=== PATIENT | female | born 1960 | race Caucasian/White ===

== ENCOUNTER 2016-12-28 16:48 | Emergency (ER) | payer SELFPAY ==
[2016-12-28] MEDS ORDERED: KETOROLAC TROMETHAMINE 60 MG/2 ML VIAL IM ONE ×2 (17:45→17:48)
[2016-12-28] MEDS ORDERED: DICYCLOMINE HCL 10 MG/ML AMPUL IM ONE ×2 (17:45→17:48)
--- NOTE | 2016-12-28 19:09 | ERNOTE ---
Abdominal HPI - Narrative Date of Service: 12/28/16 - General Chief Complaint: Abdominal Pain Time Seen by Provider: 12/28/16 18:30 Source: patient Exam Limitations: no limitations - Immun/Allergies/Home Medications Immunizatons: IMMUNIZATION HX Immunizations Up to Date Yes History of Influenza Vaccine No Hx Pneumococcal Vaccination No Allergies/Adverse Reactions: Allergies No Known Allergies Allergy (Unverified 12/28/16 17:35) Home Medications: HOME MEDICATIONS Dicyclomine HCl [Bentyl] 20 mg PO QID #30 tablet 12/28/16 [Last Taken Unknown] Liraglutide [Victoza 2-Juan] 1.8 mg SQ DAILY 12/28/16 [Last Taken Unknown] Lisinopril/Hydrochlorothiazide [Lisinopril-Hctz 20-12.5 mg Tab] 1 each PO DAILY 12/28/16 [Last Taken Unknown] Loratadine [Claritin] 10 mg PO DAILY 12/28/16 [Last Taken Unknown] Simvastatin [Zocor] 20 mg PO HS 12/28/16 [Last Taken Unknown] Sulindac 200 mg PO BID #20 tab 12/28/16 [Last Taken Unknown] Triamcinolone Acetonide [Kenalog 0.1%] 1 applic TP BID PRN 12/28/16 [Last Taken Unknown] Tuejeo 35 - 40 unit SQ DAILY 12/28/16 [Last Taken Unknown] amLODIPine BESYLATE [Norvasc] 10 mg PO DAILY 12/28/16 [Last Taken Unknown] - History of Present Illness Narrative: In May or June of last year, she began to have unusual vaginal bleeding as well as pelvic and low back pain. Lack of insurance inhibited her from seeing an [employer] doctor. In the last 1-2 weeks, the bleeding has persisted , but the pain has increased. Yesterday, she was evaluated in the [facility] ER, and was told she had an ovarian cyst. Last week, she was seen in her primary care doctor's office, and was given tramadol, 50 mg, 1 pill four times daily as needed. Sometimes it helps, and sometimes it doesn't. Yesterday in the [place] ER she was given toradol IM and Bentyl IM which helped considerably. This morning it wore off, and she was again in pain. This is the reason she came to the [facility] ER today. We've also given her Toradol and Bentyl, and it is beginning to help. She still has not seen an tow mate because of finances, but hopes to within the next week or two. Timing: constant, getting worse Quality: moderate, severe, aching, cramping Activities at Onset: none Modifying Factors - (Improves): Present: analgesics Modifying Factors - (Worsens): Present: other - nothing known Associated Symptoms: Present: other - vaginal bleeding Review of Systems - Review of Systems Constitutional: Present: no symptoms reported EYE: Present: no symptoms reported ENT: Present: no symptoms reported Respiratory: Present: no symptoms reported Cardiology: Present: no symptoms reported Gastrointestinal/Abdominal: Present: no symptoms reported Genitourinary: Present: See HPI Musculoskeletal: Present: back pain Skin: Present: no symptoms reported Neurological: Present: no symptoms reported Endocrine: Present: no symptoms reported Hematologic/Lymphatic: Present: no symptoms reported Psych: Present: no symptoms reported All Other Systems: All systems neg except as marked - Patient's Past Medical History Patient History - Medical: No pertinent hx Patient History - Cardiac/Respiratory: No pertinent hx Patient History - Cancer: No Hx of Cancer Patient History - Surgical Procedures: No surgical history - Social History Smoking Status: Never smoker Have you smoked in the past 12 months: No Do you dip or chew tobacco: No - Immunizations Immunizations Up to Date: Yes Hx Pneumococcal Vaccination: No History of Influenza Vaccine: No Physical Exam - Physical Exam General Appearance: Present: wd/wn, alert, no apparent distress Eye Exam: Normal inspection: bilateral, PERRL: bilateral, EOMI: bilateral Ears, Nose, Throat: Present: normal ENT inspection Neck: Present: normal inspection, nontender Respiratory: Present: no respiratory distress, normal breath sounds Cardiovascular/Chest: Present: regular rate, rhythm, no murmur Gastrointestinal/Abdominal: Present: normal bowel sounds, nondistended, soft, no organomegaly, tenderness - pelvis, mild Back Exam: Present: vertebral tenderness - mild, mid lumbosacral spine Extremity Exam: Present: normal inspection, no edema Neurological Exam: Present: alert, oriented, normal mood/affect Skin Exam: Present: normal color, warm/dry ED Progress - Vital Signs Patient's Vital Signs:: I have reviewed the patient's vital signs. Vital Signs: Vital Signs 12/28/16 17:22 Temperature 35.2 C L Pulse Rate 120 H Respiratory 18 Rate Blood Pressure 161/82 O2 Sat by Pulse 96 Oximetry - Progress/Reassessment Chief Complaint: Abdominal Pain Progress Note-Subjective: 12/28/16 19:09 I have requested the [facility] ER records, which I will review. 12/28/16 19:26 I've reviewed the [facility] records: UA- 3-4 wbc's, 20-29 rbc's, 1+ bacteria. 0-1 epi's. sent for culture. 7.6 X 7 cm right adnexal cyst. by CT abdomen pelvis without contrast. Glucose was 280. globulin was 4.1 wbc was 13.9, hgb was 12.6, 80 % segs, 4% bands. Departure - Departure Clinical Impression: Abnormal vaginal bleeding Ovarian cyst Qualifiers: Laterality: right Qualified Code(s): N83.201 - Unspecified ovarian cyst, right side Condition: Good Instructions: Ovarian Cyst, [id number], Abnormal Uterine Bleeding Additional Instructions: [facility] Record from yesterday reported a right ovarian cyst, 7.6 X 7 cm., which is quite large. Do not delay pursuing your plan to see a hand tube winder very soon. Referrals: Shannon Yanez ARNP [Primary Care Provider] - Prescriptions: Dicyclomine HCl [Bentyl] 20 mg PO QID #30 tablet RX: Sulindac 200 mg PO BID #20 tab
--- OUTSIDE RECORDS SUMMARY | 2016-12-28 19:12 | XMS REPORT | Continuity of Care Document ---
:1960 Author Organization [employer] Address Unavailable [place] [address] Care Team Providers Name Role Phone Shannon Yanez Primary Care Provider [phone] Source Comments This disclosure is being made pursuant to the [employer] program and maynot contain all information available regarding this patient.[employer] Active Allergies and Adverse Reactions No Known Allergies Current Medications Be aware that medications may not be up to date as of this document. Alwaysverify current medications with the patient. Prescription Sig. Disp. Refills Start Date End Date Status amLODIPine (NORVASC) 5 5 mg daily. 0 10/28/2014 Active MG tablet lisinopril-hydrochloro Take 1 tablet by Active thiazide mouth 2 (two) (PRINZIDE,ZESTORETIC) times daily. 20-12.5 MG per tablet fluticasone (FLONASE) 1 spray by Nasal Active 50 MCG/ACT nasal spray route. prn Multiple Take 1 tablet by Active Vitamins-Minerals mouth daily. (MULTIVITAMIN PO) Insulin Syringe-Needle Use as directed 100 each 11/09/2014 Active U-100 (INSULIN SYRINGE tid 1CC/31GX5/16") 31G X 5/16" 1 ML MISC insulin NPH (HUMULIN Inject 20 units 20 mL 11/10/2014 Active N,NOVOLIN N) 100 sq qam and qhs UNIT/ML injection - relion brand vial insulin regular Inject 10 units 10 mL 11/10/2014 Active (HUMULIN R,NOVOLIN R) sq before 100 UNIT/ML injection breakfast and before supper daily relion brand Albiglutide (TANZEUM) Inject 30 mg into 4 each 12/22/2014 Active 30 MG PEN the skin once a week. metFORMIN TAKE FOUR TABLETS 360 tablet 5 03/02/2015 Active (GLUCOPHAGE-XR) 500 MG BY MOUTH DAILY 24 hr tablet WITH SUPPER B Complex Vitamins Take by mouth. Active (VITAMIN B COMPLEX PO) pravastatin Take 1 tablet by 90 tablet 1 04/15/2015 Active (PRAVACHOL) 40 MG mouth daily. tablet amitriptyline (ELAVIL) TAKE ONE-HALF 45 tablet 1 07/03/2015 Active 10 MG tablet TABLET BY MOUTH AT BEDTIME Active Problems Problem Noted Date Diabetes mellitus, type 2 (HCC) 04/12/2015 Hypertension 12/26/2014 Obesity 12/26/2014 Hyperlipidemia 12/26/2014 Type II or unspecified type diabetes mellitus without mention of 11/09/2014 complication, uncontrolled Most Recent Encounters Date Type Specialty Providers Description 12/26/2016 Data Import Social History Tobacco Use Types Packs/Day Years Used Date Never Smoker Tobacco Cessation:Counseling Given: No Comments: Alcohol Use Drinks/Week oz/Week Comments Yes Last Filed Vital Signs Vital Sign Reading Time Taken Blood Pressure 135/84 04/12/2015 1:41 PM CDT Pulse 77 12/22/2014 10:12 AM CDT Temperature - - Respiratory Rate - - Height 1.6 m (5' 3") 04/12/2015 1:41 PM CDT Weight 80.287 kg (177 lb) 04/12/2015 1:41 PM CDT Body Mass Index 31.36 04/12/2015 1:41 PM CDT Oxygen Saturation - - Plan of Care Health Maintenance Due Date Last Done Comments Eye (Ophthalmology) Exam 1971 Foot Exam 1971 Lab-Urine Microalbumin 1971 Hepatitis C Screening 1979 Tetanus/Pertussis (1 - Tdap) 02/01/1980 Pap Smear 1982 Colonoscopy 2011 Mammogram 2011 Well Adult Visit 2011 LAB-HgA1C 03/18/2015 12/16/2014, 09/08/2014 Lab-Lipids 09/14/2015 03/15/2015, 04/18/2014 Influenza Immunization (#1) 2016 Results from Last 3 Months Not on file
[2016-12-28] MEDS ORDERED: DICYCLOMINE HCL 20 MG TABLET PO ONE (19:37)
[2016-12-28] MEDS ORDERED: DICYCLOMINE HCL 20 MG TABLET ONE (19:48)
[2016-12-28 20:00] VITALS: BP 145/81
== END 2016-12-28 19:55 | disposition home or self-care (01) ==
LOC: ER 16:48
DX: N93.8 Other specified abnormal uterine and vaginal bleeding (principal); N83.201 Unspecified ovarian cyst, right side

== ENCOUNTER 2017-01-12 13:37 | Emergency (ER) | payer SELFPAY ==
[2017-01-12] MEDS ORDERED: KETOROLAC TROMETHAMINE 60 MG/2 ML VIAL IM ONE ×2 (14:03→14:07)
--- NOTE | 2017-01-12 14:04 | ERNOTE ---
Medical Problem HPI - Narrative Date of Service: 01/12/17 - General Chief Complaint: General Assessment Time Seen by Provider: 01/12/17 14:02 Source: patient, family, RN notes reviewed, old records Exam Limitations: no limitations - Immun/Allergies/Home Medications Immunizations: IMMUNIZATION HX Immunizations Up to Date Yes History of Influenza Vaccine No Hx Pneumococcal Vaccination No Allergies/Adverse Reactions: Allergies No Known Allergies Allergy (Verified 01/12/17 14:05) Home Medications: HOME MEDICATIONS Dicyclomine HCl [Bentyl] 20 mg PO QID #30 tablet 12/28/16 [Last Taken Unknown] Liraglutide [Victoza 2-Juan] 1.8 mg SQ DAILY 12/28/16 [Last Taken Unknown] Lisinopril/Hydrochlorothiazide [Lisinopril-Hctz 20-12.5 mg Tab] 1 each PO DAILY 12/28/16 [Last Taken Unknown] Loratadine [Claritin] 10 mg PO DAILY 12/28/16 [Last Taken Unknown] Simvastatin [Zocor] 20 mg PO HS 12/28/16 [Last Taken Unknown] Sulindac 200 mg PO BID #20 tab 12/28/16 [Last Taken Unknown] Triamcinolone Acetonide [Kenalog 0.1%] 1 applic TP BID PRN 12/28/16 [Last Taken Unknown] Tuejeo 35 - 40 unit SQ DAILY 12/28/16 [Last Taken Unknown] amLODIPine BESYLATE [Norvasc] 10 mg PO DAILY 12/28/16 [Last Taken Unknown] Promethazine HCl [Phenergan] 25 mg PO Q6H PRN #16 tablet 01/12/17 [Last Taken Unknown] - History of Present History Narrative: 56 y/o female to the ED by private vehicle with a family member for pelvic pain due to an ovarian "cyst." This was initially diagnosed in the ED at [facility] on . She was here the next day for ongoing pain. She then saw Dr. Dupont at [facility] on 01/07/17. US that day showed a large right ovarian cystic/solid complex mass. An endometrial biopsy was done. She is to follow up there for results next week. She presents today for ongoing pain. She has [place] for this, but had been vomiting yesterday and was unable to tolerate it. She took this earlier this morning without improvement. She did have good results the last time she was given IM Toradol. She states she has been having "good days and bad days" with her pain. It is not worse today compared to her other days that she has had severe pain. Review of Systems - Review of Systems Constitutional: Present: fatigue, malaise. Absent: fever, chills EYE: Present: no symptoms reported ENT: Present: no symptoms reported Respiratory: Absent: shortness of breath, cough Cardiology: Absent: chest pain, syncope, edema Gastrointestinal/Abdominal: Present: nausea, vomiting, abdominal pain, eating less, drinking less. Absent: diarrhea, constipation Genitourinary: Absent: dysuria, hematuria Musculoskeletal: Present: no symptoms reported Skin: Absent: rash, lesions, lumps Neurological: Present: dizziness/light-headedness. Absent: headache, weakness Endocrine: Present: no symptoms reported Hematologic/Lymphatic: Present: no symptoms reported Psych: Present: no symptoms reported - Patient's Past Medical History Patient History - Medical: Diabetes Type 2, Depression, Other Patient History - Cardiac/Respiratory: No pertinent hx, Hypertension, Hyperlipidemia Patient History - Cancer: No Hx of Cancer Patient History - Surgical Procedures: Other Patient History - Other: None - Social History Abuse History: No History of abuse Psych History: Hx of Depression Smoking Status: Never smoker Have you smoked in the past 12 months: No Alcohol Use: none Drug Use: none - Immunizations Immunizations Up to Date: Yes Hx Pneumococcal Vaccination: No History of Influenza Vaccine: No Physical Exam - Physical Exam General Appearance: Present: wd/wn, alert, mild distress, other - appears uncomfortable Neck: Present: normal inspection, nontender, supple Respiratory: Present: no respiratory distress, normal breath sounds, no accessory muscle use, lungs clear Cardiovascular/Chest: Present: regular rate, rhythm, no murmur, normal peripheral pulses Gastrointestinal/Abdominal: Present: normal bowel sounds, soft, tenderness - Diffuse throughout lower abdomen, distended - moderate, bloated appearing Back Exam: Present: normal inspection, no CVA tenderness Extremity Exam: Present: normal inspection, normal range of motion, no edema Skin Exam: Present: normal color, warm/dry ED Progress - Results and Orders Patient's Lab Results:: I have reviewed the patient's lab results. - Vital Signs Patient's Vital Signs:: I have reviewed the patient's vital signs. Vital Signs: Vital Signs 01/12/17 13:44 Temperature 37.0 C Pulse Rate 112 H Respiratory 18 Rate Blood Pressure 160/87 O2 Sat by Pulse 99 Oximetry - Progress/Reassessment Chief Complaint: General Assessment Progress:: Improved Plan - Plan Plan: Notes and test results from visits at [facility] and [facility] reviewed. WBC elevated today at 19.9, but has been over 15,000 for over 2 weeks now. Patient has not had fevers. Reports that the pain she has today is the same as what she has been having, but she was unable to get it under control d/t the nausea and vomiting. Discussed further imaging today - patient does not wish to do this and I feel that it would likely be of low yield anyway. She is agreeable to returning if her symptoms worsen. 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 Departure - Departure Clinical Impression: Ovarian mass, right Disposition: Home Follow Up Needed Condition: Good Instructions: Ovarian Tumors Referrals: Shannon Yanez ARNP [Primary Care Provider] - Prescriptions: Promethazine HCl [Phenergan] 25 mg PO Q6H PRN #16 tablet PRN Reason: Nausea
--- OUTSIDE RECORDS SUMMARY | 2017-01-12 14:08 | XMS REPORT | Continuity of Care Document ---
:1960 Author Organization [employer] Address Unavailable [place] [address] [address] Care Team Providers Name Role Phone Shannon Yanez Primary Care Provider [phone] Source Comments This disclosure is being made pursuant to the [employer] program and maynot contain all information available regarding this patient.[employer] Active Allergies and Adverse Reactions No Known [...]
[2017-01-12 14:32] LABS: Hematocrit 36.2 % (37.0-47.0); Hemoglobin 12.2 gm/dL (12.5-16.0); Mean Cell Volume 85.2 fl (78-100); Mean Corpuscular Hemoglobin 28.7 pg (27-31); Mean Corpuscular Hgb Conc 33.7 g/dl (32-36); Mean Platelet Volume 11.7 fl (6.0-9.5); Neutrophil # 16.7 K/mm3 (1.3-6.0); Neutrophil % 84.3 % (42-75.0); Platelet Count 225 K/mm3 (150-450); Red Blood Count 4.25 M/mm3 (4.2-5.4); Red Cell Distribution Width 12.7 % (11.5-14.0); White Blood Count 19.8 K/mm3 (4.0-10.5)
[2017-01-12 14:35] LABS: Albumin * 3.3 gm/dl (3.4-5.0); Anion Gap 12.1 mmol/L (6.8-13.8); BUN/Creatinine Ratio 25.7 (9.0-21.6); Bilirubin, Total 0.5 mg/dL (0.0-1.1); Ca. Corrected For Albumin 9.4 mg/dL (8.4-10.2); Calcium * 9.2 mg/dL (7.9-10.9); Carbon Dioxide 29.2 mmol/L (24-32.6); Potassium 3.3 mmol/L (3.4-4.6); Total Protein 8.4 gm/dL (6.2-8.2)
[2017-01-12] MEDS ORDERED: MORPHINE SULFATE 4 MG/ML SYRG IM ONE (14:57)
[2017-01-12] MEDS ORDERED: PROMETHAZINE HCL 50 MG/ML AMPUL IM ONE ×2 (14:57→14:59)
[2017-01-12] MEDS ORDERED: MORPHINE SULFATE 4 MG/ML SYRG ONE (14:59)
[2017-01-12 15:13] VITALS: BP 147/71
== END 2017-01-12 15:22 | disposition home or self-care (01) ==
LOC: ER 13:37
DX: N83.201 Unspecified ovarian cyst, right side (principal); E11.9 Type 2 diabetes mellitus without complications; E78.5 Hyperlipidemia, unspecified; I10 Essential (primary) hypertension